=== PATIENT | male | born 1955 ===

== ENCOUNTER → 2020-12-26 09:41 | Outpatient (BNVA) | payer OTHER, SELFPAY | PROVIDERS: Visit Provider Nurse Practitioner | DX: G25.9 Extrapyramidal and movement disorder, unspecified (principal); Z87.891 Personal history of nicotine dependence | CPT/HCPCS: 99204 ==

== ENCOUNTER 2021-02-12 09:31 | Outpatient (CLI) | payer OTHER, SELFPAY ==
--- NOTE | 2021-02-12 09:57 | MR_ITS ---
WS: [id number] MRI HEAD WITH CONTRAST TECHNIQUE: Sagittal T1, T2 axial, T2 axial FLAIR, axial susceptibility weighted imaging, axial diffus ion weighted images, and coronal T2 images were obtained. Pre and post-T1 axial and post T1 coronal i mages. ADC and FSPGR images. CLINICAL INFORMATION: G25.9 - Extrapyramidal and movement disorder, unspecified COMPARISON: None. FINDINGS: No evidence of restricted diffusion to suggest acute ischemia. Ventricular system and basilar cistern s are patent. Mild small vessel changes. Mild parenchymal volume loss. Small vessel changes in the po ns. Normal posterior fossa. Normal vascular flow voids at the skull base. No extra-axial fluid collec tions. No evidence of mass or mass effect. Opacification of the right greater than left mastoid air c ells. Mild mucosal thickening right frontal sinus and ethmoid air cells. No hemosiderin on the susceptibly weighted images. Normal optic chiasm and pituitary infundibulum. Te mporal lobes and hippocampal formations are normal in appearance. Normal cavernous sinuses and Meckel 's cave. No abnormal gadolinium enhancement. Normal dural venous sinuses. MR/MR head wo/w con [id number] IMPRESSION: 1. No evidence of restricted diffusion to suggest acute ischemia. 2. Mild small vessel changes with mild parenchymal volume loss. Small vessel c hanges in the [place]. 3. No hemosiderin on susceptibly weighted images. 4. No abnormal gadolinium enhancement. 5. Opacification of the right greater than left mastoid air cells.
[2021-02-12 10:33] LABS: Blood Urea Nitrogen 14 mg/dL (8-23); Glomerular Filtration Rate 84.2 mL/min (90-130)
[2021-02-12] MEDS: gadobenate dimeglumine 20 mL vial IV (10:50)
== END 2021-02-12 09:32 | disposition home or self-care (01) ==
LOC: RADWPI 09:35
PROVIDERS: Visit Provider Nurse Practitioner
DX: G25.9 Extrapyramidal and movement disorder, unspecified (principal); Z87.891 Personal history of nicotine dependence
CPT/HCPCS: 70553; 82565; 84520; 95816; A9577